=== PATIENT | male | born 1985 | race Caucasian/White ===

== ENCOUNTER 2017-12-05 13:30 | Emergency (ER) | payer OTHER ==
[~2017-12-05] VITALS: Ht 172.7 cm; Wt 74.8 kg
== END 2017-12-05 13:46 | disposition home or self-care (01) ==
LOC: ED 13:30
DX: H92.02 Otalgia, left ear (principal); H92.12 Otorrhea, left ear

== ENCOUNTER 2024-10-08 16:18 | Emergency (ER) | payer OTHER ==
[~2024-10-08] VITALS: Ht 172.7 cm; Wt 65.8 kg
[2024-10-08] MEDS ORDERED: AMOXICILLIN500 MG PO (20:24)
[2024-10-08] MEDS ORDERED: AMOXICILLIN 500 MG HOME.PACK PO ONE (20:30)
[2024-10-08 20:37] VITALS: BP 134/84
== END 2024-10-08 20:37 | disposition home or self-care (01) ==
LOC: ED 16:18
DX: H61.23 Impacted cerumen, bilateral (principal); H66.93 Otitis media, unspecified, bilateral; F17.200 Nicotine dependence, unspecified, uncomplicated
CPT/HCPCS: 99282

== ENCOUNTER 2025-06-13 14:45 | Emergency (ER) | payer OTHER ==
[~2025-06-13] VITALS: Ht 172.7 cm; Wt 64.5 kg
[~2025-06-13 14:45] MED LIST: AMOXICILLIN500 MG PO
[2025-06-13] MEDS ORDERED: ACETAMINOPHEN500 M1 PO (15:12)
[2025-06-13] MEDS ORDERED: TRAMADOL HCL50 MG PO (16:02)
[2025-06-13] MEDS ORDERED: PENICILLIN V P500 MG PO (16:02)
[2025-06-13 16:18] VITALS: BP 123/80
== END 2025-06-13 16:18 | disposition home or self-care (01) ==
LOC: ED 14:45
DX: K02.9 Dental caries, unspecified (principal); F17.200 Nicotine dependence, unspecified, uncomplicated
CPT/HCPCS: 99282